=== PATIENT | female | born 1995 | race Two or more races ===

== ENCOUNTER 2023-04-08 17:16 | Emergency (ER) | payer OTHER ==
[~2023-04-08] VITALS: Ht 167.6 cm; Wt 75.0 kg
[2023-04-08 18:00] VITALS: BP 124/74
[2023-04-08] MEDS ORDERED: ACETAMINOPHEN 500 MG TABLET PO ONE (18:15)
[2023-04-08] MEDS ORDERED: IBUPROFEN 600 MG TABLET PO ONE (18:15)
== END 2023-04-08 18:58 | disposition home or self-care (01) ==
LOC: EMS 17:17
DX: S80.02XA Contusion of left knee, initial encounter (principal); S80.01XA Contusion of right knee, initial encounter; V89.2XXA Person injured in unspecified motor-vehicle accident, traffic, initial encounter; Y93.89 Activity, other specified; Y92.89 Other specified places as the place of occurrence of the external cause; Y99.8 Other external cause status
CPT/HCPCS: 99283